=== PATIENT | male | born 1980 | race Hispanic/Latino ===

== ENCOUNTER 2020-10-10 09:36 | Emergency (ER) | payer BC ==
[~2020-10-10] VITALS: Ht 175.3 cm; Wt 88.5 kg
[2020-10-10] MEDS ORDERED: LIDOCAINE 4% PATCH TP STA (09:53)
[2020-10-10] MEDS ORDERED: KETOROLAC TROMETHAMINE 30 MG/ML VIAL IM STA (09:53)
[2020-10-10] MEDS ORDERED: DEXAMETHASONE 4 MG TAB PO STA (09:53)
[2020-10-10] MEDS ORDERED: ACETAMINOPHEN 325 MG TAB PO ONE (10:00)
[2020-10-10] MEDS ORDERED: DEXAMETHASONE SOD PHOS 10 MG/1 ML VIAL ONE (10:07)
[2020-10-10 10:49] LABS: CLARITY,URINE CLEAR (CLEAR); COLOR,URINE YELLOW (YELLOW); KETONES,URINE NEGATIVE (NEGATIVE); LEUKOCYTE ESTERASE ,URINE NEGATIVE (NEGATIVE); NITRITE,URINE NEGATIVE (NEGATIVE); PROTEIN,URINE DIPSTICK NEGATIVE (NEGATIVE); URINE UROBILINOGEN 0.2 mg/dL (0.2 - 1)
[2020-10-10 10:57] LABS: MUCUS,URINE FEW (RARE); RBC,URINE 0-5 /HPF (0-5); WBC,URINE (MAN) 0-5 /HPF (0-5)
[2020-10-10] MEDS ORDERED: LIDOPATCH1 EACH TOP (11:19)
[2020-10-10] MEDS ORDERED: CYCLOBENZAPRINE5 MG PO (11:19)
[2020-10-10 11:44] VITALS: BP 126/74
== END 2020-10-10 11:46 | disposition home or self-care (01) ==
LOC: ER 09:58
DX: M54.5 Low back pain (principal); Z87.442 Personal history of urinary calculi
CPT/HCPCS: 81001; 99283; J1100; J1885